=== PATIENT | male | born 1975 | race Caucasian/White ===

== ENCOUNTER 2022-08-28 21:48 | Inpatient (IN) | payer BC, OTHER ==
[~2022-08-28] VITALS: Ht 182.9 cm; Wt 158.8 kg
--- NOTE | 2022-08-28 22:08 | NUR ---
PTE SE RECIBE POR PRESION MARY GRACE DOLOR DE SHELBIE MAREO ANSIEDAD Y PROBLEMA RESPIRATORIO REFIERE PARAMEDICO Y PTE.
--- NOTE | 2022-08-29 02:03 | NUR ---
SE RECIBE PTE ALERTA Y ORIENTADO X3 EN ROSEANNA CON BARANDAS ELEVADAS. SE COLOCA PTE EN CAMA CON BARANDAS ELEVADAS,SE CONECTA A MONITOR CARDIACO Y OXIMETRIA. SE RECIBE PTE CANALIZADO EN BRAZO DERECHO AREA KATLIN DE EDEMA Y DE ENROJECIMIENTO. PTE CON DRIP DE TRIDIL 50MG/250ML BAJANDO A 5ML/HR. PTE SE MANTIENE BAJO OBSERVACION POR CAMBIOS.
--- NOTE | 2022-08-29 07:53 | NUR ---
SE RECIBE PTE DEL TURNO ANTERIOR, ALERTA Y ORIENTADO EN KALPANA KAYE ESFERAS, ALERTA Y ORIENTADO EN [place] KAYE ESFERAS, UBICADO EN CAMA NIVEL MAS BAJO, HALEY DE IDENTIFICACION Y BARANDAS ELEVADAS POR PRECAUCION. SE OBSERVA CON BUEN PATRON RESPIRATORIO, CANULA NASAL A 3L/MIN, LA CUAL TOLERA, SATURANDO 98% BRIA OXIMETRO DE PULSO. PIEL TIBIA AL TACTO. IV'S PATENTES Y LIBRES DE EDEMA O ERITEMA RECIBIENDO 0.45% NACL @75ML/HR Y DRIP DE TRIDIL 50MG/250ML @3ML/HR. PENDIENTE ENTREGAR MUESTRA DE U/A, PTE ORIENTADO SOBRE LA MISMA Y CON ENVASE DISPONIBLE. PENDIENTE CONSULTA CON DR PACHECO (CARDIOLOGIA) Y DR Yenifer DEXTER (MEDICINA INTERNA). SE MANTIENE BAJO OBSERVACION, EN CAMA NIOVEL MAS BAJO BARANDAS ELEVADAS POR PRECAUCION Y CONECTADO A MONITOR CARDIACO Y OXIMETRIA DE PULSO.
== END 2022-08-31 15:11 | disposition home or self-care (01) | DRG 305 ==
LOC: ER 21:48 → SEC-K 08-29 10:08 → O/R 08-29 14:06 → SEC-K 08-29 14:07 → MEDJ 08-30 14:52
PROVIDERS: ADMIT Internal Medicine; ATTEND Internal Medicine
PROC: 3E0F7SF Introduction of Other Gas into Respiratory Tract, Via Natural or Artificial Opening (ICD-10-PCS; 2022-08-28)
PROC: 4A12X4Z Monitoring of Cardiac Electrical Activity, External Approach (ICD-10-PCS; principal; 2022-08-29)
PROC: B24BZZZ Ultrasonography of Heart with Aorta (ICD-10-PCS; 2022-08-29)
DX: I16.0 Hypertensive urgency (principal); E66.9 Obesity, unspecified; R77.8 Other specified abnormalities of plasma proteins

== ENCOUNTER 2023-03-26 00:45 | Emergency (ER) | payer BC, OTHER ==
[~2023-03-26] VITALS: Ht 185.4 cm; Wt 136.1 kg
[2023-03-26] MEDS ORDERED: BUSPIRONE HCL7.5 MG (01:12)
[2023-03-26] MEDS ORDERED: COZAAR25 MG (01:12)
== END 2023-03-26 02:37 | disposition home or self-care (01) ==
LOC: ER 00:45
DX: K29.60 Other gastritis without bleeding (principal); I10 Essential (primary) hypertension